=== PATIENT | male | born 1995 | race Two or more races ===

== ENCOUNTER 2017-09-05 12:04 | Emergency (ER) | payer MEDICAID ==
[~2017-09-05] VITALS: Ht 172.7 cm; Wt 71.2 kg
[2017-09-05 12:12] VITALS: Ht 172.7 cm; Wt 71.2 kg
[2017-09-05 13:55] VITALS: BP 120/65
== END 2017-09-05 14:01 | disposition home or self-care (01) ==
LOC: ED 12:04
DX: J06.9 Acute upper respiratory infection, unspecified (principal); J98.01 Acute bronchospasm; F12.10 Cannabis abuse, uncomplicated
CPT/HCPCS: J7512; J7613

== ENCOUNTER 2018-01-30 16:42 | Emergency (ER) | payer MEDICAID ==
[~2018-01-30] VITALS: Ht 172.7 cm; Wt 66.2 kg
[2018-01-30 16:57] VITALS: Ht 172.7 cm; Wt 66.2 kg
[2018-01-30 18:15] LABS: microscopic required? NO
[2018-01-30 18:24] LABS: BASOPHIL % 0.8 % (0-2); PLATELET COUNT 225 x10^3mcL (130-400); RED CELL DISTRIBUTION WIDTH 12.3 % (11.5-14.5)
[2018-01-30 18:28] LABS: UA SPECIFIC GRAVITY 1.025 (1.005-1.035); urine erythrocyte NEGATIVE (NEGATIVE)
[2018-01-30 18:36] LABS: CALCIUM 9.4 mg/dL (8.5-10.1); CHLORIDE SERUM 104 mmol/L (98-107); CREATININE SERUM 0.9 mg/dL (0.7-1.3); GFR1 > 60 mL/min; GLUCOSE SERUM 86 mg/dL (74-106); POTASSIUM SERUM 3.4 mmol/L (3.5-5.1); SODIUM SERUM 141 mmol/L (136-145)
[2018-01-30 18:41] LABS: ALBUMIN 3.9 g/dL (3.4-5.0); ALKALINE PHOSPHATASE 76 U/L (46-116); ALT/SGPT 23 U/L (16-63); AST/SGOT 15 U/L (15-37); TOTAL PROTEIN, SERUM 7.4 g/dL (6.4-8.2)
[2018-01-30 19:27] VITALS: BP 140/109
== END 2018-01-30 19:27 | disposition home or self-care (01) ==
LOC: ED 16:42
PROVIDERS: Emergency Medicine
DX: E86.0 Dehydration (principal); F17.210 Nicotine dependence, cigarettes, uncomplicated
CPT/HCPCS: 36415; 87491; 87591